=== PATIENT | male | born 1955 | race Caucasian/White ===

== ENCOUNTER → 2017-08-19 | Outpatient (CLI) | payer OTHER | END | disposition home or self-care (01) | LOC: CDC 11:26 | DX: Z01.810 Encounter for preprocedural cardiovascular examination (principal) | CPT/HCPCS: 93000 ==

== ENCOUNTER 2017-09-06 16:13 | Emergency (ER) | payer OTHER ==
[~2017-09-06] VITALS: Ht 180.3 cm; Wt 75.1 kg
[2017-09-06 17:05] LABS: BASOPHIL COUNT 0.1 K/uL (0-0.1); EOSINOPHIL (%) 4.6 % (0-5); EOSINOPHIL COUNT 0.3 K/uL (0-0.3); HEMATOCRIT 30.8 % (38.0-50.0); IMMATURE GRANULOCYTE (%) 0.9 % (0.0-0.7); IMMATURE GRANULOCYTE COUNT 0.1 K/uL; INSTRUMENT ABS NEUTROPHIL CT 3.6 K/uL; LYMPHOCYTE COUNT 2.1 K/uL (1.0-2.8); MCH 35.8 PG (29.0-34.0); MCHC 35.7 G/DL (30.0-36.0); MCV 100.3 FL (86-99); MEAN PLAT.VOLUME 8.5 uM^3 (9.0-12.4); MONOCYTE COUNT 0.6 K/uL (0-0.8); NEUTROPHIL (%) 54.1 % (45-76); NEUTROPHIL COUNT 3.6 K/uL (1.8-6.4); PLATELET COUNT 343 K/uL (156-360); RBC DIS.WIDTH-CV 11.9 % (11.8-14.6); RED BLOOD COUNT 3.07 M/uL (4.00-5.50); WHITE BLOOD COUNT 6.7 K/uL (4.1-10.2)
[2017-09-06 17:11] LABS: PROTHROMBIN TIME 10.6 SEC (10.2-12.9)
[2017-09-06 17:13] LABS: PTT 27.5 SEC (25-37)
[2017-09-06 17:14] LABS: CHLORIDE 100 mEq/L (99-109); POTASSIUM 4.1 mEq/L (3.7-5.4); SODIUM 135 mEq/L (136-147)
[2017-09-06 17:15] LABS: MAGNESIUM 2.4 mg/dL (1.3-2.7)
[2017-09-06 17:16] LABS: GLUCOSE 95 mg/dL (70-99)
[2017-09-06 17:18] LABS: ANION GAP 11 MEQ/L (2-14); TOTAL BILIRUBIN 0.2 mg/dL (0.0-1.0)
[2017-09-06 17:20] LABS: ALKALINE PHOSPHATASE 37 IU/L (3-129); GFR ESTIMATE (CALCULATED) > 59 mL/min/
[2017-09-06 17:21] LABS: UREA NITROGEN (BUN) 17 mg/dL (9-23)
[2017-09-06 17:23] LABS: CREATINE KINASE 102 IU/L (1-294); TOTAL CK 102 IU/L (1-294)
[2017-09-06 17:24] LABS: TROP-I INTERPRETATION NEGATIVE; TROPONIN-I < 0.01 ng/mL (0.0-0.30)
[2017-09-06 17:29] LABS: CK-MB 1.4 ng/mL (0.0-4.9)
[2017-09-06 20:36] VITALS: BP 108/69
== END 2017-09-06 20:36 | disposition home or self-care (01) ==
LOC: EME 16:13
PROVIDERS: Emergency Medicine
DX: R42 Dizziness and giddiness (principal); E78.5 Hyperlipidemia, unspecified; I10 Essential (primary) hypertension; Z86.73 Personal history of transient ischemic attack (TIA), and cerebral infarction without residual deficits; Z21 Asymptomatic human immunodeficiency virus [HIV] infection status; F17.200 Nicotine dependence, unspecified, uncomplicated
CPT/HCPCS: 71010; 80053; 82550; 82553; 83735; 84484; 85025; 85610; 85730; 93005; 99281; 99284; J7030